=== PATIENT | female | born 1975 | race Caucasian/White ===

== ENCOUNTER 2017-06-11 16:17 | Observation (INO) | payer MEDICAID, OTHER ==
[~2017-06-11] VITALS: Ht 162.6 cm; Wt 67.0 kg
[2017-06-11 17:03] LABS: BASOPHILS # (AUTO) 0.03 x10^3/uL (0-0.1); BASOPHILS % (AUTO) 1 % (0-1); EOSINOPHILS # (AUTO) 0.04 x10^3/uL (0-0.4); EOSINOPHILS % (AUTO) 1 % (1-7); LYMPHOCYTES # (AUTO) 0.85 x10^3/uL (1-3.4); LYMPHOCYTES % (AUTO) 18 % (22-44); MD NO; MEAN CORPUSCULAR HEMOGLOBIN 28.8 pg (27.0-34.8); MEAN CORPUSCULAR HGB CONC 33.8 g/dL (32.4-35.8); MEAN CORPUSCULAR VOLUME 85.2 fL (80-100); MEAN PLATELET VOLUME 8.2 fL (7.4-10.4); MONOCYTES # (AUTO) 0.32 x10^3/uL (0.2-0.8); MONOCYTES % (AUTO) 7 % (2-9); NEUTROPHILS # (AUTO) 3.44 x10^3/uL (1.8-6.8); NEUTROPHILS % (AUTO) 74 % (42-75); PLATELET COUNT 272 x10^3/uL (130-400); RED BLOOD COUNT 5.05 x10^6/uL (3.82-5.3); RED CELL DISTRIBUTION WIDTH 13.1 % (9.6-15.2)
[2017-06-11 17:12] LABS: ALBUMIN 4.1 g/dL (3.4-5.0); ANION GAP 8 mmol/L (5-15); CHLORIDE 109 mmol/L (98-107)
[2017-06-11 17:13] LABS: SALICYLATE LEVEL < 1.7 mg/dL (2.8-20.0)
[2017-06-11 17:14] LABS: ACETAMINOPHEN < 2 mcg/mL (10-30)
[2017-06-11] MEDS ORDERED: DOCUSATE 100 MG CAPSULE PO PRN (22:00)
[2017-06-11] MEDS ORDERED: ONDANSETRON ODT 4 MG PO PRN (22:00)
[2017-06-11 22:26] LABS: FREE T4 (FREE THYROXINE) 1.21 ng/dL (0.76-1.46); THYROID STIMULATING HORMONE 1.57 mIU/L (0.358-3.740)
[2017-06-11] MEDS ORDERED: PLEASE ENTER ALLERGIES MC SCH (23:00)
[2017-06-11 23:17] LABS: AMPHETAMINE SCREEN, URINE Negative (Negative); BARBITURATE SCREEN, URINE Negative (Negative); BENZODIAZEPINE SCREEN, URINE Negative (Negative); CANNABINOID SCREEN, URINE Negative (Negative); COCAINE SCREEN, URINE Negative (Negative); OPIATE SCREEN, URINE Negative (Negative)
[2017-06-11 23:18] LABS: METHADONE SCREEN, URINE Negative (Negative)
[2017-06-12 18:36] VITALS: BP 116/74
[2017-06-12 19:38] VITALS: BP 101/66
[2017-06-13 08:03] VITALS: BP 96/63
[2017-06-13 20:36] VITALS: BP 125/78
[2017-06-14 07:45] VITALS: BP 111/75
[2017-06-14] MEDS: ACETAMINOPHEN 325 MG TABLET PO PRN ×2 (16:23→20:48)
[2017-06-14 19:54] VITALS: BP 123/81
[2017-06-15 07:33] VITALS: BP 129/80
== END 2017-06-15 10:00 | disposition home or self-care (01) ==
LOC: ED 17:41 → EDIP 17:42 → ED 17:50 → 2N 06-12 17:41
PROVIDERS: ADMIT Internal Medicine; ATTEND Internal Medicine
DX: R45.851 Suicidal ideations (principal); F41.1 Generalized anxiety disorder
CPT/HCPCS: 36415; 80048; 80307; 80329; 82040; 84439; 84443; 84703; 85025; 99285; G0378; G0480